=== PATIENT | male | born 1945 | race Caucasian/White ===

== ENCOUNTER 2017-10-18 08:39 | Day surgery (SDC) | payer OTHER, SELFPAY ==
[2017-10-18] VITALS (8 sets, daily range): BP systolic 107–119; BP diastolic 67–80; PULSE 64–76; RESP 9–16; TEMP 35.9–36.7; O2SAT 95–100; BMI 28.5
[2017-10-18] MEDS: SODIUM CHLORIDE 0.9% 1,000 ML 200 ML IV (09:11)
--- NOTE | 2017-10-18 09:37 | SUR.PREOP ---
pt experienced light headedness and nauseous after iv insertion, o2 2l applied, hob down at 0930, at 0935 pt feeling much better, vss
--- NOTE | 2017-10-18 10:15 | PM.HP.1 ---
History of Present Illness Date Patient Seen: 10/18/17 Time Patient Seen: 10:15 Chief complaint: colonoscopy [id number] Narrative: Very pleasant and remarkably healthy gentleman of 71 years who presents for screening colonoscopy. His last colonoscopy was approximately 10 years ago and was normal. He denies any new problems or symptoms related to the functions GI tract. He reports he needs colonoscopy as part about maintenance program. Patient History Family & Social History Family History: Reviewed 10/18/17 by Quynh Damon MD Social History: household members spouse Meds Home Medications Medication Instructions Recorded Confirmed Type aspirin [Aspir-81] 81 mg PO DAILY 10/18/17 10/18/17 History lovastatin 20 mg PO DAILY 10/18/17 10/18/17 History Allergies Allergy/AdvReac Type Severity Reaction Status Date / Time No Known Drug Allergies Allergy Verified 10/18/17 09:04 Review of Systems Review of Systems All systems reviewed & are unremarkable except as noted in HPI and below Exam Vital Signs (past 8 hours): - 10/18/17 09:05 Temperature 97.1 F L Pulse Rate 76 Respiratory Rate 16 Blood Pressure 117/80 Pulse Oximetry 99 Oxygen Delivery Method Room Air Narrative Exam Narrative: Very pleasant well-nourished well-developed gentleman in no distress HEENT: Normocephalic and atraumatic, pupils equal round reactive to light accommodation with anicteric sclera Lungs: Clear to auscultation bilaterally Heart: Regular rate and rhythm without murmur rub or gallop Abdomen: Soft, nontender, active bowel sounds Extremities: Warm and well perfused Assessment & Plan Plan: Assessment/Plan Narrative: Very pleasant gentleman here for screening colonoscopy. He has no family history of colon cancer and has never had a colonoscopy that was abnormal. We discussed the risks and benefits of the procedure the patient expressed desire to complete it today
[2017-10-18] MEDS: fentaNYL 250 MCG/5 ML INJ IV (10:40)
--- NOTE | 2017-10-18 10:40 | PM.OP.1 ---
Operative Date/Time/Diagnoses Date of procedure: 10/18/17 Time of procedure: 10:40 Pre-op diagnosis: Screening Post-op diagnosis: same Procedure & Clinicians Procedure: Colonoscopy to the cecum Same procedure as scheduled: Yes Indications: Last colonoscopy 10 years ago Surgeon: Quynh Damon Click Yes if Unassisted: Yes Anesthesia Type: Sedation (Versed 6 mg; fentanyl 150 mcg) Operative Notes Findings: 1. Excellent prep 2. No polyps or mass lesions 3. No AV malformations 4. Very mild diverticulosis limited to the sigmoid region 5. Grade 1 internal hemorrhoids 6. Essentially normal colonoscopy for age Closure Type: not applicable Specimen(s): none sent Procedure in detail: After obtaining informed consent, the patient was brought to the GI suite and placed in the left lateral decubitus position on the examination table. After placement of appropriate monitors, the patient was given incremental doses of Versed and Fentanyl until an appropriate level of sedation was achieved. A time out was held per [facility] protocol. A digital rectal examination was performed and did not reveal any masses or obstructing lesions. The colonoscope was gently passed into the patient's anus and the entire colon navigated to the level of the cecum with minimal difficulty. Once in the cecum, the scope was withdrawn being sure to go before and beyond all mucosal folds and prominences and get an excellent examination. The findings are noted above. At the level of the rectal vault, the scope was retroflexed and the internal anal canal was examined. The scope was straightened and air aspirated from the colon. The instrument was removed from the patient's body and the procedure was concluded. The patient was allowed to awaken from sedation without difficulty and taken to the post-anesthesia care unit in good condition. Total sedation time 21 min Total withdrawal time 11 min and 17 sec Condition: stable Disposition: PACU Plan for aftercare: 1. Discharge to home 2. Plan for next colonoscopy in 10 years or as clinically indicated
[2017-10-18] MEDS: MIDAZOLAM 5 MG/5 ML VIAL IV (10:41)
== END 2017-10-18 11:54 | disposition home or self-care (01) ==
PROVIDERS: Visit Provider Surgery
PROC: 0DJD8ZZ Inspection of Lower Intestinal Tract, Via Natural or Artificial Opening Endoscopic (ICD-10-PCS; CPT 45378; principal; 2017-10-18 09:45)
DX: Z12.11 Encounter for screening for malignant neoplasm of colon (principal); K57.30 Diverticulosis of large intestine without perforation or abscess without bleeding; K64.0 First degree hemorrhoids
CPT/HCPCS: G0121; 99152; J2250; J3010